=== PATIENT | female | born 1975 ===

== ENCOUNTER 2021-09-09 06:04 | Observation (INO) | payer BC, OTHER ==
[2021-09-08 10:31] LABS: Basophils % (Auto) 0.4 % (0.0-1.8); Eosinophils % (Auto) 0.6 % (0.0-4.3); Hematocrit 40.6 % (30.3-42.9); Hemoglobin 13.3 gm/dl (10.1-14.3); Lymphocytes # (Auto) 2.8 K/mm3 (1.2-5.4); Lymphocytes % (Auto) 40.1 % (13.4-35.0); Mean Corpuscular HGB Conc 33 % (30-34); Mean Corpuscular Volume 90 fl (79-97); Monocytes # (Auto) 0.3 K/mm3 (0.0-0.8); Platelet Count 309 K/mm3 (140-440); Red Blood Count 4.51 M/mm3 (3.65-5.03); Red Cell Distribution Width 13.1 % (13.2-15.2)
--- NOTE | 2021-09-08 10:44 | Anesthesia Consultation ---
Anesthesia Consult and Med Hx Date of service: 09/09/21 - Airway Anesthetic Teeth Evaluation: Good ROM Head & Neck: Adequate Mental/Hyoid Distance: Adequate Mallampati Class: Class III Intubation Access Assessment: Possibly Difficult - Pulmonary Exam CTA: Yes - Cardiac Exam Cardiac Exam: RRR - Pre-Operative Health Status ASA Pre-Surgery Classification: ASA1 Proposed Anesthetic Plan: General Nerve Block: post op TAP prn - Pulmonary Hx Smoking: No Hx Respiratory Symptoms: No - Cardiovascular System Hx Hypertension: No - Central Nervous System CVA: No - Endocrine Hx Renal Disease: No Hx Liver Disease: No Hx Insulin Dependent Diabetes: No Hx Non-Insulin Dependent Diabetes: No Hx Thyroid Disease: No - Other Systems Hx Obesity: No - Additional Comments Anesthesia Medical History Comments: No hx anesthetic complications.
--- NOTE | 2021-09-08 13:46 | History and Physical Report ---
History of Present Illness Date of examination: 09/03/21 Date of admission: 09/08/21 Chief complaint: fibroids, pelvic pain History of present illness: Visit Type: Pre-Op CC: no complaints. History of Present Illness: Pt presents for pre-Op. No c/o. ............. ........................................................Zoey Rowan September 03, 2021 11:04 AM mask,Patient denies fever, cough, shortness of breath and exposure to COVID-19. Pt presens for Pre op for LAVH with BS due to dysmenorrhea and fibroid uterus. Pt did have UFE in 2016 and initally had relief of sx. In 2018 pt began to have more pain with intercourse that has gotten progressive worse and not sex is unbarable. I d/w pt that this pain may not resolve with removal of the enlarged uterus and fibroid. Pt expressed understanding and all questions were addresssed and answered. I d/w pt that she may need an HUSEYIN vs LAVH id the uterus or fibroid are too big and impeed removal vaginally. Again she expressed understanding and quesitons were addressed and answered. All risk/benefits/alternatives were d/w pt and questions were addressed and answered. Consents signed and placed on the chart. 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 of genital herpes: no Partner hx. of genital herpes: no Hx of STD: None Active Medications (reviewed today): None Current Allergies (reviewed today): No known allergies Past Medical History: Reviewed history from 05/19/2021 and no changes required: Anemia Fibroids Past Surgical History: Reviewed history from 05/19/2021 and no changes required: positive Cholecystectomy Tubal Ligation UFE Risk Factors: Smoked Tobacco Use: Never smoker Smokeless Tobacco Use: Never Passive Smoke Exposure: no HIV High Risk Behavior: no Exercise: no Seatbelt Use: 100 % Physical Exam Appearance: well developed, well nourished, no acute distress Other Exams Lungs: no rales, rhonchi, or wheezes Heart: S1, S2, no murmur, rub, or gallop Abdomen: soft, non-tender, no masses, bowel sounds normal Extremities: normal alignment, no joint enlargement, crepitus, masses or tender ness; normal tone and strength Past History Past Medical History: other (see hpi) Past Surgical History: other (see hpi) 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) Family/Genetic History: other (see hpi) Social history: other (see hpi) Medications and Allergies Allergies Allergy/AdvReac Type Severity Reaction Status Date / Time No Known Allergies Allergy Unverified 09/04/21 16:14 Home Medications Medication Instructions Recorded Confirmed Last Taken Type No Known Home Medications [No 09/04/21 09/04/21 Unknown History Reported Home Medications] Active Meds: Active Medications Acetaminophen (Acetaminophen 500 Mg Tab) 1,000 mg PO PREOP FERCHO Stop: 09/09/21 23:59 Celecoxib (Celecoxib 200 Mg Cap) 200 mg PO PREOP NR Stop: 09/09/21 23:59 Gabapentin (Gabapentin 300 Mg Cap) 300 mg PO PREOP NR Stop: 09/09/21 23:59 Lactated Ringer's (Lactated Ringers) 1,000 mls @ 100 mls/hr IV DIRECT FERCHO Stop: 09/09/21 23:59 Methocarbamol 1,000 mg/ Sodium (Chloride) 260 mls @ 250 mls/hr IV PREOP FERCHO Stop: 09/09/21 23:59 Cefazolin Sodium (Ancef/Sterile Water 2 Gm/20 Ml) 2 gm in 20 mls @ 80 mls/hr IV PREOP NR; Protocol Stop: 09/10/21 06:00 Midazolam HCl (Midazolam 2 Mg/2 Ml Inj) 2 mg IV PREOP NR Stop: 09/09/21 23:59 Scopolamine (Scopolamine Transdermal Patch 72 Hr) 1 each TD PREOP NR Stop: 09/09/21 23:59 Review of Systems All systems: negative - Physical Exam Cardiovascular: Normal S1, Normal S2 Lungs: Positive: Clear to auscultation, Normal air movement Abdomen: Positive: normal appearance, soft. Negative: distention, tenderness, guarding Genitourinary (Female): Positive: other (deferred until EUA) Results Result Diagrams: 09/08/21 10:00 Abnormal lab results 09/08/21 Range/Units 10:00 RDW 13.1 L (13.2-15.2) % Lymph % (Auto) 40.1 H (13.4-35.0) % All other labs normal. Assessment and Plan - Patient Problems (1) Fibroid Current Visit: No Status: Acute Plan to address problem: -to OR for above stated procedure -consents signed and placed on the chart. (2) Pelvic pain Current Visit: No Status: Acute (3) Painful sex Current Visit: No Status: Acute
[~2021-09-09 06:04] MED LIST: ACETAMINOPHEN 500 MG TAB PO SCH; CELECOXIB 200 MG CAP PO NR; GABAPENTIN 300 MG CAP PO NR; MIDAZOLAM 2 MG/2 ML INJ IV NR; SCOPOLAMINE TRANSDERMAL PATCH 72 HR TD NR; ceFAZolin/Water 2 GM/20 ML 2 GM/20 ML SYRINGE IV NR; methOCARBAMOL 1,000 MG in SODIUM CHLORIDE 0.9% 250ML 250 ML IV SCH
[2021-09-09] MEDS: LACTATED RINGERS 1,000 ML IV SCH ×3 (07:00→23:27)
[2021-09-09] MEDS ORDERED: SODIUM CHLORIDE 0.9% 100 ML ONE (07:06)
[2021-09-09] MEDS ORDERED: VASOPRESSIN 20 UNIT/1 ML INJ ONE (07:06)
[2021-09-09] MEDS ORDERED: BUPIVACAINE/PF (0.5%) 5 MG/1 ML 30 ML VIAL INFILTRATI ONE ×3 (07:07→09:14)
[2021-09-09] MEDS ORDERED: oxyCODONE /ACETAMINOPHEN 5-325MG TAB PO PRN (07:24)
[2021-09-09] MEDS ORDERED: HYDROmorphone 0.5 MG/0.5 ML INJ IV PRN (07:24)
[2021-09-09] MEDS ORDERED: ONDANSETRON 4 MG/2 ML INJ IV PRN ×2 (07:24→11:30)
--- NOTE | 2021-09-09 07:24 | Anesthesia Day of Surgery ---
Anesthesia Day of Surgery - Day of Surgery Patient Examined: Yes Patient H&P Reviewed: Yes Patient is NPO: Yes
[2021-09-09] MEDS ORDERED: HYDROmorphone 1 MG/1 ML INJ ONE (07:42)
[2021-09-09] MEDS ORDERED: propofoL 200 MG/20 ML VIAL IV ONE (07:42)
[2021-09-09] MEDS ORDERED: ROCURONIUM 50 MG/5 ML INJ IV ONE (07:42)
[2021-09-09] MEDS ORDERED: ONDANSETRON 4 MG/2 ML INJ ONE (07:42)
[2021-09-09] MEDS ORDERED: LIDOCAINE MPF (2%) 20 MG/1 ML VIAL 5 ML ONE (07:42)
[2021-09-09] MEDS ORDERED: ANTICOAGULANT SOD CITRATE SOLUTION MC ONE (08:30)
[2021-09-09] MEDS ORDERED: SODIUM CHLORIDE 0.9% IRRIG SOLN 2000 ML IRRIGATION ONE (09:10)
[2021-09-09] MEDS ORDERED: VASOPRESSIN 20 UNIT/1 ML INJ IV ONE (09:15)
[2021-09-09] MEDS ORDERED: SODIUM CHLORIDE 0.9% 100 ML IVPB IV ONE (09:16)
[2021-09-09] MEDS ORDERED: NEOSTIGMINE 10MG/10 ML INJ MDV ONE (10:07)
[2021-09-09] MEDS ORDERED: LACTATED RINGERS 1,000 ML ONE (10:07)
[2021-09-09] MEDS ORDERED: GLYCOPYRROLATE 0.4 MG/2 ML INJ ONE (10:07)
[2021-09-09] MEDS ORDERED: KETOROLAC 30 MG/1 ML INJ ONE (10:34)
[2021-09-09] MEDS ORDERED: IBUPROFEN 800 MG TAB PO PRN (10:51)
--- NOTE | 2021-09-09 10:51 | Operative Report ---
Operative Report Operative Report: Date of procedure: 09/09/2021 Pre-operative diagnosis: Fibroid uterus Dyspareunia Dysmenorrhea Post-operative diagnosis: Same Procedure name(s): Laparoscopic assisted vaginal hysterectomy Bilateral salpingectomy Surgeon: Carolyne Fuentes MD Imaging Nurse: Dr. Judith Saab Anesthesia: General endotracheal anesthesia EBL: 50 mL Urine output: 200 mL of clear urine out at end of procedure Fluids: 1200 mL Findings: Normal ovaries bilaterally. Evidence of bilateral partial salpingectomy. Approximately 6 to 7 cm posterior fundal uterine fibroid that was subserosal. Adhesions of the bowel to the posterior surface of the uterus. Evidence of uterine fibroid embolization and uterine blood vessels. Indications: Patient with long history of heavy bleeding and pelvic pain especially during sex. Patient did have uterine fibroid embolization. However symptoms returned. Patient desired definitive therapy via removal of the uterus. All risk benefits and alternatives were discussed with the patient. Consents were signed and placed on the chart. Procedure: Patient was taken to the operating room where she was placed under general endotracheal anesthesia. She was then prepped and draped in sterile fashion. It was at this point that the large [employer] uterine manipulator was placed inside of the uterus after the uterus was sounded to approximately 12 cm. Escboar catheter was also placed at this time. Attention was then turned to the umbilicus in which a supraumbilical incision was made. Under direct visualization the 5 mm trocar was placed inside the peritoneum the peritoneum was then insufflated. As at this point that the laparoscopic portion of the procedure was performed. 2 lateral 5 mm ports were also placed under direct visualization. Using the tripolar instrument the upper pedicles were cauterized and transected to the including round ligament with excellent hemostasis noted bilaterally. Attention was then turned vaginally. A weighted speculum was placed into the vagina and the cervix was grasped with a single-tooth tenaculum 2. The cervix was then injected circumferentially with Pitressin. The cervix was then circumferentially incised with the scalpel and the bladder dissected off of the pubovesical cervical fascia anteriorly with a sponge stick and Metzenbaum scissors. The same procedure was performed posteriorly and the posterior cul-de-sac was entered into sharply without difficulty. At this point a Richi Clamp was placed over the uterosacral ligaments on either side. These were then transected and suture ligated with 0 Vicryl. Hemostasis was assured. The cardinal ligaments were then clamped on both sides transected and suture ligated in similar fashion. The uterine arteries were then serially clamped with Richi clamps transected and suture ligated on both sides. Excellent hemostasis was visualized. After it was clear that the uterus had been completely from all pedicles the uterus was removed vaginally intact with cervix intact. The vaginal cuff angles were closed with figure of 8 stitches of 0 Vicryl on both sides. The peritoneum was incorporated in the stitching of the vaginal cuff. A series of interrupted figure of 8 sutures using 0 Vicryl were used to close the entire vaginal cuff. Excellent hemostasis was noted. The vagina was then irrigated copiously. Attention was then turned laparoscopically at which time. Again all pedicles were noted to be hemostatic. Surgicel was placed along the vaginal cuff incision. Excellent hemostasis was noted. All instruments were then removed from the abdomen and the vagina. All gas was released from the abdomen. The abdominal incisions were closed using 4-0 Monocryl. All of the abdominal incisions were injected with Marcaine without epi. Patient tolerated the procedure well sponge lap and needle counts were all correct 3 the patient was taken to the recovery room awake and in stable condition.
[2021-09-09] MEDS ORDERED: MAGNESIUM HYDROXIDE (MOM) ORAL LIQD UDC PO PRN (11:30)
[2021-09-09] MEDS ORDERED: ACETAMINOPHEN 325 MG TAB PO PRN (11:30)
--- NOTE | 2021-09-09 13:11 | Post Anesthesia Evaluation ---
- Post Anesthesia Evaluation Patient Participated: Yes Airway Patent: Yes Stable Respiratory Function: Yes Nausea/Vomiting: No Temp > 96.8F: Yes Pain Manageable: Yes Adequeate Hydration: Yes Anesthesia Complications: No
[2021-09-09] MEDS: ceFAZolin/NS 1 GM/50 ML 1 GM/50 ML BAG IV SCH ×2 (14:54→22:00)
[2021-09-09] MEDS: KETOROLAC 30 MG/1 ML INJ IV PRN ×2 (16:38→21:52)
[2021-09-10 03:13] LABS: Hematocrit 38.4 % (30.3-42.9); Hemoglobin 12.4 gm/dl (10.1-14.3)
[2021-09-10] MEDS: oxyCODONE /ACETAMINOPHEN 5-325MG TAB PO PRN ×2 (03:36→10:09)
--- NOTE | 2021-09-10 08:47 | Progress Note ---
Assessment and Plan - Patient Problems (1) Fibroid Status: Acute (2) Pelvic pain Status: Acute (3) Painful sex Status: Acute (4) S/P laparoscopic assisted vaginal hysterectomy (LAVH) Status: Acute Plan to address problem: -routine post op care, d/c home this pm if tolerates regular diet. f/u in office in one week. Pt doing very well. Subjective - Subjective Date of service: 09/11/21 Principal diagnosis: POD #1 s/p LAVH with BS Interval history: Pt sitting in bed doing well. She desires d/c home today. She has tolerated a clear liquid and soft diet. She will be d/c home this pm if tolerates breakfast and lunch Findings of sx were d/w pt and questions were addressed and answered. Patient reports: appetite normal, voiding normally, pain well controlled, flatus, ambulating normally, no dizzy ambulation, no bowel movement, no nauseated Objective - Vital Signs Latest vital signs: Vital Signs Temp Pulse Resp BP BP Pulse Ox 09/10/21 08:00 97.7 F 50 L 18 94/48 100 09/10/21 04:12 97.9 F 59 L 18 105/53 97 09/10/21 03:36 20 09/09/21 23:34 98.1 F 66 18 109/47 97 09/09/21 21:52 20 09/09/21 20:28 98.5 F 61 18 114/55 96 09/09/21 20:00 98 09/09/21 16:23 98.2 F 69 16 139/70 98 09/09/21 12:12 98.3 F 58 L 14 117/60 98 09/09/21 12:00 61 16 118/55 97 09/09/21 11:45 58 L 15 119/62 97 09/09/21 11:30 97.7 F 57 L 16 117/63 97 09/09/21 11:15 54 L 16 115/57 97 09/09/21 11:10 53 L 19 109/60 100 09/09/21 11:05 50 L 16 115/56 100 09/09/21 11:00 99.6 F 60 17 103/53 100 Intake and Output 09/09/21 09/10/21 09/10/21 22:59 06:59 14:59 Intake Total 670 855 320 Output Total 800 1725 Balance -130 -870 320 Intake: IV 50 855 ANCEF/NS 1 GM/50 ML 1 gm 50 In 50 ml @ 100 mls/hr IV Q8H FERCHO Rx#:[id number] Lactated Ringers 1,000 ml 855 @ 100 mls/hr IV DIRECT FERCHO Rx#:[id number] Oral 520 320 Intake, Free Water 100 Output: Urine 800 1725 Indwelling Catheter 800 1625 Void 100 Other: Total, Intake Amount 520 320 Total, Output Amount 400 100 Voiding Method Toilet # Voids Indwelling Catheter 1 Void 1 - Exam Breasts: Present: deferred Cardiovascular: Present: Normal S1, Normal S2 Lungs: Present: Clear to auscultation, Normal air movement Abdomen: Present: normal appearance, soft, normal bowel sounds. Absent: distention, tenderness, guarding Incision: Present: normal, dry, intact
--- NOTE | 2021-09-10 08:49 | Discharge Summary ---
Providers - Providers Date of Admission: 09/09/21 10:51 Date of discharge: 09/10/21 Attending physician: AMANDEEP NERI Primary care physician: SAMM CAMACHO Hospitalization Reason for admission: other (lavh with bs) Procedure: other (lavh with bs) Procedure details: see op notes Incision: normal, dry, intact (open to aire. no s/sx of infection) Discharge diagnosis: other (s/p LAVH with BS) Hospital course: Pt admitted for above stated procedures. She had the procedures that were not complicated. She was d/c home on pod#1 with f/u in office in one week. Condition at discharge: Good Disposition: 01 HOME / SELF CARE / HOMELESS - Discharge Diagnoses (1) Fibroid Status: Acute (2) Pelvic pain Status: Acute (3) Painful sex Status: Acute Plan - Discharge Medications Prescriptions: Docusate Sodium [Colace] 100 mg PO BID PRN #60 capsule PRN Reason: Constipation Ibuprofen [Motrin 800 MG tab] 800 mg PO Q8HR PRN #30 tablet PRN Reason: Pain, Moderate (4-6) oxyCODONE /ACETAMINOPHEN [Percocet 5/325] 1 tab PO Q4HR #10 tab - Provider Discharge Summary Activity: routine, no sex for 6 weeks, no heavy lifting 4 weeks Additional instructions: [] Smoking cessation referral if applicable(refer to patient education folder for contact #) [] Refer to [facility] Booklet Call your doctor immediately for: * Fever > 100.5 * Heavy vaginal bleeding ( >1 pad per hour) * Severe persistent headache * Shortness of breath * Reddened, hot, painful area to leg or breast * Drainage or odor from incision. * Keep incision clean and dry at all times and follow doctor's instructions regarding bathing/showering - Follow up plan Follow up: SAMM CAMACHO MD [Primary Care Provider] - 7 Days Forms: [facility] Discharge Summary
--- NOTE | 2021-09-10 09:23 | Post Anesthesia Evaluation ---
- Post Anesthesia Evaluation Patient Participated: Yes Airway Patent: Yes Stable Respiratory Function: Yes Nausea/Vomiting: No Temp > 96.8F: Yes Pain Manageable: Yes Adequeate Hydration: Yes Anesthesia Complications: No Block Receding Appropriately: Yes Patient on Ventilator: No
[2021-09-10 12:47] VITALS: BP 98/47
== END 2021-09-10 12:48 | disposition home or self-care (01) ==
LOC: OR 06:04 → OB 10:51
PROVIDERS: ADMIT Obstetrics & Gynecology; ATTEND Obstetrics & Gynecology
DX: N94.6 Dysmenorrhea, unspecified (principal); Z20.822 Contact with and (suspected) exposure to COVID-19; N94.10 Unspecified dyspareunia; D25.9 Leiomyoma of uterus, unspecified; R10.2 Pelvic and perineal pain; D64.9 Anemia, unspecified; Z90.49 Acquired absence of other specified parts of digestive tract; Z98.51 Tubal ligation status; Z79.899 Other long term (current) drug therapy; Z98.890 Other specified postprocedural states
CPT/HCPCS: 36415; 58552; 84703; 85014; 85018; 85025; 86850; 86900; 86901; 88302; 88307; 96365; 96366; 96375; 96376; C1765; G0378; J0690; J1170; J1815; J1885; J2405; J2704; J2710; J3490; J7120; U0003